=== PATIENT | female | born 1965 | race Hispanic/Latino ===

== ENCOUNTER 2017-03-18 07:51 | Emergency (ER) | payer BC ==
[2017-03-18 07:59] VITALS: RESP 18; TEMP 97.8; O2SAT 99
--- NOTE | 2017-03-18 09:10 | C.PDOC ---
History Of Present Illness 51 year old female presents to the ED with complaints of right ankle, right foot , left shoulder, and back pain for one day. Patient reports she fell down the stairs yesterday after twisting her ankle. She states she fell on her buttocks and fell down the stairs in a sitting position. Patient denies head injury, LOC , incontinence, weakness, or numbness. Time Seen by Provider: 03/18/17 08:01 Chief Complaint (Nursing): Lower Extremity Problem/Injury History Per: Patient History/Exam Limitations: no limitations Onset/Duration Of Symptoms: Days (1 day ) Current Symptoms Are (Timing): Still Present Recent travel outside of the [place]: No - Ankle/Foot Description Of Injury: Twisted (right ankle ) Past Medical History Reviewed: Historical Data, Nursing Documentation, Vital Signs Vital Signs: Last Vital Signs Temp 97.8 F 03/18/17 07:57 Pulse 78 03/18/17 09:43 Resp 18 03/18/17 09:43 BP 132/86 03/18/17 09:43 Pulse Ox 99 03/18/17 13:08 - Medical History PMH: Diabetes Family History: States: Unknown Family Hx - Social History Hx Tobacco Use: No Hx Alcohol Use: No Hx Substance Use: No - Immunization History Hx Tetanus Toxoid Vaccination: Yes Hx Influenza Vaccination: No Hx Pneumococcal Vaccination: No Review Of Systems Constitutional: Negative for: Fever, Chills Cardiovascular: Negative for: Chest Pain Gastrointestinal: Negative for: Nausea, Vomiting Genitourinary: Negative for: Dysuria, Incontinence Musculoskeletal: Positive for: Shoulder Pain (left shoulder ), Back Pain, Foot Pain (right ankle and foot ) Neurological: Negative for: Weakness, Numbness, Headache Physical Exam - Physical Exam Appears: Non-toxic, No Acute Distress Skin: Warm, Dry, No Rash, No Ecchymosis Head: Atraumatic, Normacephalic, No Tenderness Eye(s): bilateral: Normal Inspection, PERRL, EOMI Oral Mucosa: Moist Neck: Supple Chest: Symmetrical, No Deformity Cardiovascular: Rhythm Regular, No Murmur Respiratory: No Rales, No Rhonchi, No Wheezing, Other (clear to auscultation bilaterally ) Gastrointestinal/Abdominal: Soft, No Tenderness, No Distention, No Guarding, No Rebound Back: Other (diffuse tenderness to the lower back ) Extremity: Normal ROM (with mild pain with ROM of right ankle ), Tenderness ( diffuse tenderness to left shoulder, tenderness to dorsum of right foot, tenderness to lateral aspect of right ankle ), No Pedal Edema, No Calf Tenderness, Capillary Refill (good capillary refill, less than two seconds ), No Deformity, Swelling, Other Neurological/Psych: Oriented x3 Gait: Steady ED Course And Treatment O2 Sat by Pulse Oximetry: 99 (RA) - Other Rad Right ankle X-Ray X-Ray: Viewed By Me, Read By Radiologist Interpretation: negative, no dislocation or fracture. Right foot X-Ray X-Ray: Viewed By Me, Read By Radiologist Interpretation: negative, no dislocation or fracture. Lumbar Spine X-Ray X-Ray: Viewed By Me, Read By Radiologist Interpretation: negative, no dislocation or fracture. Left Shoulder X-Ray X-Ray: Viewed By Me, Read By Radiologist Interpretation: negative, no dislocation or fracture. Progress Note: Patient was given motrin. Left shoulder X-Ray, Right foot X-Ray, Right ankle X-Ray, and Lumbar spine X-Ray was ordered. Patient was given air cast, crutches, and instructed to follow up outpatient. Disposition - Disposition Referrals: Viet Walker III, MD [Staff Provider] - Disposition: HOME/ ROUTINE Disposition Time: 09:11 Condition: STABLE Additional Instructions: Follow up with your PMD and Orthopedist. Return to Ed if feel worse. Prescriptions: Ibuprofen [Motrin Tab] 600 mg PO Q8 #30 tab diaZEpam [Valium] 2 mg PO TID #15 tab Instructions: Ankle Sprain (ED), Shoulder Sprain (ED), Lumbar Radiculopathy (ED ) Forms: [employer] (Filipino), Work Excuse - Clinical Impression Clinical Impression: Ankle sprain, Lumbar radiculopathy, Muscle strain of left shoulder - PA / TERRITORY ACCOUNT MANAGER / Resident Statement MD/DO has reviewed & agrees with the documentation as recorded. - Scribe Statement The provider has reviewed the documentation as recorded by the Shira Robles All medical record entries made by the Leticiaibbrandon were at my direction and personally dictated by me. I have reviewed the chart and agree that the record accurately reflects my personal performance of the history, physical exam, medical decision making, and the department course for this patient. I have also personally directed, reviewed, and agree with the discharge instructions and disposition.
[2017-03-18 09:46] VITALS: BP 132/86; PULSE 78
--- NOTE | 2017-03-18 15:25 | RAD ---
PROCEDURE: Radiographs of the Left Shoulder HISTORY: fall COMPARISON: None available. FINDINGS: BONES: No acute displaced fracture. The distal clavicle and underlying ribs appear intact. JOINTS: No acute dislocation. SOFT TISSUES: Soft tissues appear unremarkable. No evidence of radiopaque foreign body. IMPRESSION: No acute displaced fracture or dislocation evident. If symptoms persist or if there is continued clinical concern, x-ray follow-up in 7-10 days should be considered.
--- NOTE | 2017-03-18 15:30 | RAD ---
PROCEDURE: Radiographs of the Lumbar Spine. HISTORY: fall COMPARISON: Lumbar spine radiographs performed 01/27/13. FINDINGS: Examination limited by habitus. BONES: Alignment appears satisfactory. No listhesis. No acute displaced fracture identified. Mild degenerative changes most prominent at L4-L5. Facet hypertrophy. DISC SPACES: Unremarkable. OTHER FINDINGS: IUD. Suture material noted within the left upper quadrant. IMPRESSION: Degenerative changes. Facet hypertrophy. IUD.
--- NOTE | 2017-03-18 15:33 | RAD ---
PROCEDURE: Right ankle radiographs Right foot radiographs HISTORY: fall COMPARISON: None available FINDINGS: BONES: No acute displaced fracture. Mild degenerative changes particularly at the midfoot. Tiny calcaneal enthesophyte. JOINTS: No dislocation. SOFT TISSUES: Vascular calcifications. No evidence of radiopaque foreign body. OTHER FINDINGS: None. IMPRESSION: No acute displaced fracture or dislocation identified. If symptoms persist or if there is clinical concern, x-ray follow-up in 7-10 days should be considered.
== END 2017-03-18 11:35 | disposition home or self-care (01) ==
LOC: C.ER 07:51
DX: M54.16 Radiculopathy, lumbar region (principal); S46.912A Strain of unspecified muscle, fascia and tendon at shoulder and upper arm level, left arm, initial encounter; S93.401A Sprain of unspecified ligament of right ankle, initial encounter; W10.8XXA Fall (on) (from) other stairs and steps, initial encounter; Y93.89 Activity, other specified; Y92.89 Other specified places as the place of occurrence of the external cause
CPT/HCPCS: 72100; 73030; 73610; 73630; 97116; 97161; 99284; G8978; G8979; G8980